=== PATIENT | female | born 1960 | race Caucasian/White ===

== ENCOUNTER 2019-11-10 13:32 | Inpatient (IN) | payer MEDICAID ==
[~2019-11-10] VITALS: Ht 172.7 cm; Wt 80.0 kg
[2019-11-10 14:25] LABS: BASOPHILS % (AUTO) 0.1 % (0-1); EOSINOPHILS % (AUTO) 0.1 % (0-6); HEMATOCRIT 49.1 % (35.0-45.0); HEMOGLOBIN 16.7 g/dl (12.0-16.0); LYMPHOCYTES # (AUTO) 0.7 X10'3 (1.1-4.8); LYMPHOCYTES % (AUTO) 7.6 % (21-51); MEAN CORPUSCULAR HEMOGLOBIN 30.5 PG (27.0-31.0); MEAN CORPUSCULAR VOLUME 89.7 FL (78-98); MEAN PLATELET VOLUME 8.5 FL (7.4-10.4); MONOCYTES # (AUTO) 1.3 X10'3 (0-0.9); MONOCYTES % (AUTO) 13.3 % (2-12); NEUTROPHILS # (AUTO) 7.5 X10'3 (1.8-7.7); NEUTROPHILS % (AUTO) 78.9 % (42-75); PLATELET COUNT 371 X10'3 (140-440); RED BLOOD COUNT 5.47 X10'6 (4.20-5.60); RED CELL DISTRIBUTION WIDTH 14.6 % (11.5-14.5); WHITE BLOOD COUNT 9.4 X10'3 (4.5-11.0)
[2019-11-10] MEDS ORDERED: normal saline 1000ML IV soln IVB ONE ×3 (14:35→17:35)
[2019-11-10] MEDS ORDERED: ondansetron/PF 4mg/2ml inj IV ONE (14:35)
[2019-11-10 14:44] LABS: ALANINE AMINOTRANSFERASE 48 U/L (12-78); ALBUMIN/GLOBULIN RATIO 0.9 (1.1-1.5); ALKALINE PHOSPHATASE 69 IU/L (46-116); ANION GAP 13 (8-16); ASPARTATE AMINO TRANSFERASE 45 U/L (10-37); BILIRUBIN,TOTAL 1.3 MG/DL (0.1-1.0); BLOOD UREA NITROGEN 38 MG/DL (7-18); BUN/CREATININE RATIO 32.2 (6.6-38.0); CALCIUM 9.5 MG/DL (8.5-10.1); CHLORIDE 107 MMOL/L (99-107); CREATININE 1.18 MG/DL (0.40-0.90); GLUCOSE 136 MG/DL (70-104); LIPASE < 50 U/L (73-393); POTASSIUM 3.7 MMOL/L (3.5-5.1); SODIUM 142 MMOL/L (135-145); TOTAL CARBON DIOXIDE 22.3 MMOL/L (24-32); TOTAL PROTEIN 6.5 G/DL (6.4-8.2); eGFR 47 ML/MIN
[2019-11-10] MEDS: morphine 4 MG/ML inj SYRINge IV PRN ×2 (14:48→19:36)
--- NOTE | 2019-11-10 15:06 | NUR ---
Pt has 100ml green bile from NG tube that was placed at previous facility, positive ausculation air sounds for valid NG placement
--- NOTE | 2019-11-10 15:08 | NUR ---
pt ambulatory with steady giat to provide urine sample per orders
[2019-11-10] MEDS ORDERED: diatrozoate meglu/diatrozoate sod (37% iodine) 120ML oral solution ONE (15:40)
[2019-11-10 15:49] LABS: CLARITY,URINE CLEAR (Clear); COLOR,URINE AMBER (Yellow); GLUCOSE, URINE NEGATIVE (Neg); KETONES,URINE TRACE mg/dl (Neg); LEUKOCYTE ESTERASE ,URINE NEGATIVE (Neg); NITRITES, URINE NEGATIVE (Neg); OCCULT BLOOD,URINE NEGATIVE (Neg); PH,URINE 5.5 (4.8-8.0); PROTEIN,URINE TRACE mg/dl (Neg); UA COLLECTION TYPE CLN CATCH MIDSTREAM
[2019-11-10 15:59] LABS: SQUAMOUS EPITHELIAL CELL,UR MODERATE /LPF (FEW)
[2019-11-10 16:00] LABS: BACTERIA,URINE 1+ /HPF (Neg); CAL OXALATE CRYSTALS FEW /HPF (NEGATIVE); RBC,URINE 0-2 /HPF (0-2); WBC,URINE 0-4 /HPF (0-4)
[2019-11-10] MEDS ORDERED: CHOL200052 PO (16:39)
[2019-11-10] MEDS ORDERED: PROP20TA6 PO (16:39)
[2019-11-10] MEDS ORDERED: FLO0.4C PO (16:39)
[2019-11-10] MEDS ORDERED: OMEP40CA13 PO (16:39)
[2019-11-10] MEDS ORDERED: LOSA1TAB36 PO (16:39)
[2019-11-10] MEDS ORDERED: AMIT25TA10 PO (16:39)
[2019-11-10] MEDS ORDERED: SUMA100T16 PO (16:39)
[2019-11-10] MEDS ORDERED: DULO30CA52 PO (16:39)
--- NOTE | 2019-11-10 16:55 | NUR ---
PT TO CT VIA WHEELCHAIR WITH INDIRECT FIRE INFANTRYMAN PER ORDERS NOW
[2019-11-10] MEDS ORDERED: morphine 2 MG/ML inj. syringe IV PRN ×2 (17:25)
[2019-11-10] MEDS ORDERED: magnesium 2GM in 50ml NS 50 ML IV PRN (17:25)
[2019-11-10] MEDS ORDERED: magnesium 4gm in 100ml NS 100 ML IV PRN (17:25)
[2019-11-10] MEDS ORDERED: acetaminophen 325mg tablet PO PRN ×2 (17:25)
[2019-11-10] MEDS ORDERED: potassium CL 10mEq/100ml bag 100 ML IV PRN ×2 (17:25)
[2019-11-10] MEDS ORDERED: ondansetron/PF 4mg/2ml inj IV PRN (17:25)
[2019-11-10] MEDS ORDERED: magnesium hydroxide 30ml (MOM) UD suspension PO PRN (17:25)
[2019-11-10] MEDS ORDERED: diphenhydrAMINE 50 mg/ml inj IV PRN (17:25)
[2019-11-10] MEDS ORDERED: HYDROmorphone 1 mg/ml syringe IV PRN (17:25)
[2019-11-10] MEDS ORDERED: mag hydrox/Alum hydrox/simeth 30ml oral suspension PO PRN (17:25)
[2019-11-10] MEDS ORDERED: metoclopramide 5 mg/ml inj IV PRN (17:25)
[2019-11-10] MEDS ORDERED: potassium Cl 20 mEq SR tablet PO PRN (17:25)
[2019-11-10] MEDS ORDERED: HYDROmorphone inj. 0.5 MG/0.5 ML DISP.SYRIN IV PRN (17:25)
[2019-11-10] MEDS ORDERED: diphenhydrAMINE 25mg capsule PO PRN (17:25)
[2019-11-10] MEDS ORDERED: magnesium Cl slow-release 64mg tablet PO PRN (17:25)
[2019-11-10] MEDS ORDERED: piperacillin/tazo 3.375gm/50ml 50 ML IV SCH (17:25)
[2019-11-10 18:09] LABS: HEMOGLOBIN A1C 5.9 % (4.5-6.2)
--- NOTE | 2019-11-10 19:17 | NUR ---
pt had BM into BSC - approx 4 ping pong sized balls of stool mixed with approx 100ml of dark brown liquid - pt cleaned up and placed back in bed only to request to be placed back on the BSC.
--- NOTE | 2019-11-10 19:31 | NUR ---
PT HAD ANOTHER BM - APPROX 2-3 INCH SEGMENT OF FORMED STOOL WITH APPROX 2500ML OF BROWN LIQUID IN BSC BUCKET. PT CLEANED AND PLACED BACK INTO BED. SHE IS REQUSTING SOMETHING FOR PAIN. WITH CHECK MAR AND MEDICATE PT OR CONTACT MD IF NO ORDERS.
[2019-11-10] MEDS: vancomycin/NS 1 GM ADD-VANTAGE 250 ML IV ONE ×2 (19:33→22:08)
[2019-11-10] MEDS: normal saline 1000ml 1,000 ML IV SCH ×2 (19:37→22:51)
--- NOTE | 2019-11-10 19:46 | NUR ---
pts left arm noted to be swollen, she states she had a ct scan and her iv infiltrated.
--- NOTE | 2019-11-10 20:23 | NUR ---
Received report from ER nurse Ximena LYNN, Will assume patient care.
[2019-11-10 20:30] VITALS: BP 97/51
--- NOTE | 2019-11-10 21:30 | NUR ---
Patient arrived to floor. Patient HR noted to be in the 120's, temp of 102.2. with her 4th Liter of normal saline bolus running. Dr. Montalvo notified of her fever. Also inform him that blood cultural unable to be obtain because of hard stick. is aware and states continue with ABx. 2230-ACCE RN was able to draw blood. Continue infusing her ABX.
[2019-11-10] MEDS: K and/or MAG REPLACEMENT MC SCH (21:44)
[2019-11-11] VITALS (9 sets, daily range): BP systolic 80–103; BP diastolic 52–58
[2019-11-11] MEDS: propranolol 40mg tablet PO SCH ×3 (00:11→20:00)
[2019-11-11] MEDS: duloxetine 30mg CAPSULE.DR PO SCH ×3 (00:17→19:58)
[2019-11-11] MEDS: amitriptyline 50mg tablet PO SCH ×2 (00:17→20:15)
[2019-11-11] MEDS: heparin, porcine 5000 units/ml vial SQ SCH ×3 (00:18→19:58)
--- NOTE | 2019-11-11 01:00 | NUR ---
Patient BP drop to 80/52 with HR in the 120's. Dr. Montalvo notified to give 1L bolus now and reassess BP, If less than 90 systolic to notified him for further orders. @0130 Dr. Montalvo in to see patient. Orders to dc NG. Continue with finishing her bolus BP 87/54 @0200 1L bolus completed. BP 93/57, hr107, temp 98.7. Patient states she is feeling alot better. States her stomach is not as distended and painful.
[2019-11-11] MEDS ORDERED: normal saline 1000ml 1,000 ML IV ONE (01:20)
[2019-11-11] MEDS: normal saline 1000ml 1,000 ML IV SCH ×3 (01:21→17:45)
--- NOTE | 2019-11-11 04:00 | NUR ---
Patient current Bp 103/58, HR 115, temp 98.
[2019-11-11 05:01] LABS: BASOPHILS % (AUTO) 0 % (0-1); EOSINOPHILS % (AUTO) 0.1 % (0-6); HEMATOCRIT 37.7 % (35.0-45.0); HEMOGLOBIN 12.9 g/dl (12.0-16.0); LYMPHOCYTES # (AUTO) 0.6 X10'3 (1.1-4.8); LYMPHOCYTES % (AUTO) 7.2 % (21-51); MEAN CORPUSCULAR HEMOGLOBIN 30.6 PG (27.0-31.0); MEAN CORPUSCULAR HGB CONC 34.2 g/dL (33.0-36.5); MEAN CORPUSCULAR VOLUME 89.7 FL (78-98); MEAN PLATELET VOLUME 8.6 FL (7.4-10.4); MONOCYTES # (AUTO) 1.1 X10'3 (0-0.9); MONOCYTES % (AUTO) 14.1 % (2-12); NEUTROPHILS % (AUTO) 78.6 % (42-75); PLATELET COUNT 285 X10'3 (140-440); RED BLOOD COUNT 4.21 X10'6 (4.20-5.60); RED CELL DISTRIBUTION WIDTH 14.6 % (11.5-14.5); WHITE BLOOD COUNT 7.6 X10'3 (4.5-11.0)
[2019-11-11 05:24] LABS: ALANINE AMINOTRANSFERASE 36 U/L (12-78); ALBUMIN 2.3 G/DL (3.4-5.0); ALBUMIN/GLOBULIN RATIO 0.8 (1.1-1.5); ALKALINE PHOSPHATASE 48 IU/L (46-116); ANION GAP 11 (8-16); ASPARTATE AMINO TRANSFERASE 30 U/L (10-37); BILIRUBIN,TOTAL 0.9 MG/DL (0.1-1.0); BLOOD UREA NITROGEN 33 MG/DL (7-18); BUN/CREATININE RATIO 38.8 (6.6-38.0); CALCIUM 7.8 MG/DL (8.5-10.1); CHLORIDE 112 MMOL/L (99-107); CHOL/HDL RATIO 4.1 (0.00-4.99); CHOLESTEROL 131 MG/DL (0-200); CREATININE 0.85 MG/DL (0.40-0.90); GLUCOSE 104 MG/DL (70-104); HDL CHOLESTEROL 32 MG/DL (35-60); LDL CHOLESTEROL 79 MG/DL (50-100); PHOSPHORUS 2.4 MG/DL (2.3-4.5); POTASSIUM 3.3 MMOL/L (3.5-5.1); SODIUM 145 MMOL/L (135-145); TOTAL CARBON DIOXIDE 22.5 MMOL/L (24-32); TOTAL PROTEIN 5.2 G/DL (6.4-8.2); TRIGLYCERIDES 134 MG/DL (20-135); eGFR 69 ML/MIN
[2019-11-11 06:09] LABS: PLATELET ESTIMATE NORMAL; TOTAL CELLS COUNTED 100
--- NOTE | 2019-11-11 06:30 | NUR ---
Problems reprioritized. Patient report given, questions answered & plan of care reviewed with Melva LYNN.
--- NOTE | 2019-11-11 06:51 | NUR ---
Patient in room [facility]. I have received report from Amina LYNN and had the opportunity to ask questions and assume patient care.
[2019-11-11] MEDS: pantoprazole 40mg Tablet.DR PO SCH (07:36)
[2019-11-11] MEDS: potassium Cl 20 mEq SR tablet PO PRN ×3 (07:37→17:00)
[2019-11-11] MEDS: tamsulosin 0.4mg capsule PO SCH (07:37)
[2019-11-11] MEDS: HYDROcodone/acetaminophen 5mg/325mg tablet PO PRN (07:38)
[2019-11-11] MEDS: K and/or MAG REPLACEMENT MC SCH ×2 (07:43→20:00)
[2019-11-11] MEDS: piperacillin/tazo 3.375gm/50ml 50 ML IV SCH ×2 (07:47→15:15)
[2019-11-11] MEDS ORDERED: losartan 50mg tablet PO SCH (08:00)
[2019-11-11] MEDS ORDERED: HYDROchlorothiazide 12.5mg capsule PO SCH (08:00)
[2019-11-11] MEDS: HYDROcodone/acetaminophen 10/325mg tab PO PRN ×3 (12:43→21:53)
--- NOTE | 2019-11-11 18:39 | NUR ---
Problems reprioritized. Patient report given, questions answered & plan of care reviewed with Zeke LYNN.
--- NOTE | 2019-11-11 18:40 | NUR ---
Patient in room [facility]. I have received report from SIMON LYNN and had the opportunity to ask questions and assume patient care.
[2019-11-12] VITALS: BP 94/50
[2019-11-12] MEDS: piperacillin/tazo 3.375gm/50ml 50 ML IV SCH ×3 (00:29→15:36)
[2019-11-12] MEDS: HYDROcodone/acetaminophen 10/325mg tab PO PRN ×4 (02:03→20:10)
[2019-11-12] MEDS: normal saline 1000ml 1,000 ML IV SCH ×2 (03:07→10:20)
[2019-11-12 05:12] LABS: BASOPHILS % (AUTO) 0.1 % (0-1); EOSINOPHILS # (AUTO) 0.1 X10'3 (0-0.9); EOSINOPHILS % (AUTO) 1.6 % (0-6); HEMATOCRIT 34.3 % (35.0-45.0); HEMOGLOBIN 11.7 g/dl (12.0-16.0); LYMPHOCYTES # (AUTO) 1.1 X10'3 (1.1-4.8); LYMPHOCYTES % (AUTO) 12.7 % (21-51); MEAN CORPUSCULAR HEMOGLOBIN 30.9 PG (27.0-31.0); MEAN CORPUSCULAR HGB CONC 34.2 g/dL (33.0-36.5); MEAN CORPUSCULAR VOLUME 90.4 FL (78-98); MONOCYTES # (AUTO) 0.9 X10'3 (0-0.9); MONOCYTES % (AUTO) 10.4 % (2-12); NEUTROPHILS # (AUTO) 6.3 X10'3 (1.8-7.7); NEUTROPHILS % (AUTO) 75.2 % (42-75); PLATELET COUNT 264 X10'3 (140-440); RED BLOOD COUNT 3.79 X10'6 (4.20-5.60); RED CELL DISTRIBUTION WIDTH 14.9 % (11.5-14.5); WHITE BLOOD COUNT 8.4 X10'3 (4.5-11.0)
[2019-11-12 05:36] LABS: ALANINE AMINOTRANSFERASE 29 U/L (12-78); ALBUMIN/GLOBULIN RATIO 0.6 (1.1-1.5); ALKALINE PHOSPHATASE 46 IU/L (46-116); ANION GAP 8 (8-16); ASPARTATE AMINO TRANSFERASE 25 U/L (10-37); BILIRUBIN,TOTAL 0.4 MG/DL (0.1-1.0); BLOOD UREA NITROGEN 14 MG/DL (7-18); BUN/CREATININE RATIO 24.1 (6.6-38.0); CALCIUM 7.5 MG/DL (8.5-10.1); CHLORIDE 110 MMOL/L (99-107); CREATININE 0.58 MG/DL (0.40-0.90); GLUCOSE 99 MG/DL (70-104); MAGNESIUM 1.9 MG/DL (1.5-2.4); POTASSIUM 3.5 MMOL/L (3.5-5.1); SODIUM 140 MMOL/L (135-145); TOTAL CARBON DIOXIDE 22.4 MMOL/L (24-32); TOTAL PROTEIN 5.1 G/DL (6.4-8.2); eGFR > 90 ML/MIN
[2019-11-12 05:39] LABS: PHOSPHORUS 0.8 MG/DL (2.3-4.5)
--- NOTE | 2019-11-12 06:04 | NUR ---
CALLED DR. ALBARRAN AND WAS INFORMED OF CRITICAL PHOS 0.8 NO NEW ORDERS MADE.
--- NOTE | 2019-11-12 06:15 | NUR ---
Patient in room [facility]. I have received report from LEAH Alanis and had the opportunity to ask questions and assume patient care.
[2019-11-12 07:27] VITALS: BP 100/61
[2019-11-12] MEDS: K and/or MAG REPLACEMENT MC SCH ×2 (08:00→19:45)
[2019-11-12 08:18] LABS: ANISOCYTOSIS 1+; PLATELET ESTIMATE NORMAL; TOTAL CELLS COUNTED 100
[2019-11-12] MEDS: pantoprazole 40mg Tablet.DR PO SCH (08:40)
[2019-11-12] MEDS: propranolol 40mg tablet PO SCH ×2 (08:40→20:09)
[2019-11-12] MEDS: heparin, porcine 5000 units/ml vial SQ SCH ×2 (08:41→20:13)
[2019-11-12] MEDS: tamsulosin 0.4mg capsule PO SCH (08:41)
[2019-11-12] MEDS: duloxetine 30mg CAPSULE.DR PO SCH ×2 (08:41→20:11)
[2019-11-12] MEDS ORDERED: pneumococcal 23-VAL P-sac vacc 25 mcg/0.5ml vial IMVAC ONE (10:00)
[2019-11-12 11:00] VITALS: BP 98/57
[2019-11-12] MEDS ORDERED: furosemide 40mg/4ml inj IV ONE (14:15)
[2019-11-12] MEDS ORDERED: methylPREDNISolone sod succ 125mg/2ml vial IV ONE (14:15)
[2019-11-12] MEDS: ipratropium/albuterol 3ml nebule NEB SCH ×3 (15:00→23:21)
[2019-11-12 18:00] VITALS: BP 105/66
--- NOTE | 2019-11-12 18:00 | NUR ---
Problems reprioritized. Patient report given, questions answered & plan of care reviewed with LEAH Stevens.
[2019-11-12] MEDS: lactobacillus rhamnosus 10,000 MMU CELLS/CAPSULE PO SCH (20:10)
[2019-11-12] MEDS: methylPREDNISolone sod succ 125mg/2ml vial IV SCH (20:14)
[2019-11-12] MEDS: amitriptyline 50mg tablet PO SCH (21:00)
[2019-11-12] MEDS ORDERED: potassium phosphate inj 30 MMOL in normal saline 500ml IV soln 490 ML IV ONE (22:10)
[2019-11-13] VITALS: BP 96/62
[2019-11-13] MEDS: methylPREDNISolone sod succ 125mg/2ml vial IV SCH ×3 (01:04→14:15)
[2019-11-13] MEDS: piperacillin/tazo 3.375gm/50ml 50 ML IV SCH ×2 (01:04→11:30)
[2019-11-13] MEDS: ipratropium/albuterol 3ml nebule NEB SCH ×4 (03:17→15:12)
[2019-11-13] MEDS: HYDROcodone/acetaminophen 5mg/325mg tablet PO PRN ×3 (03:51→14:04)
[2019-11-13 05:28] LABS: EOSINOPHILS % (AUTO) 0 % (0-6); HEMOGLOBIN 11.7 g/dl (12.0-16.0); LYMPHOCYTES # (AUTO) 0.4 X10'3 (1.1-4.8); MEAN PLATELET VOLUME 9.6 FL (7.4-10.4); MONOCYTES # (AUTO) 0.1 X10'3 (0-0.9)
[2019-11-13 05:32] LABS: BASOPHILS % (AUTO) 0.2 % (0-1); HEMATOCRIT 33.6 % (35.0-45.0); LYMPHOCYTES % (AUTO) 5.6 % (21-51); MEAN CORPUSCULAR HGB CONC 34.7 g/dL (33.0-36.5); MEAN CORPUSCULAR VOLUME 89.2 FL (78-98); MONOCYTES % (AUTO) 1.5 % (2-12); NEUTROPHILS # (AUTO) 6.5 X10'3 (1.8-7.7); NEUTROPHILS % (AUTO) 92.7 % (42-75); PLATELET COUNT 305 X10'3 (140-440); RED BLOOD COUNT 3.77 X10'6 (4.20-5.60); RED CELL DISTRIBUTION WIDTH 14.5 % (11.5-14.5)
[2019-11-13 05:43] LABS: ALANINE AMINOTRANSFERASE 30 U/L (12-78); ALBUMIN 2.2 G/DL (3.4-5.0); ALBUMIN/GLOBULIN RATIO 0.6 (1.1-1.5); ALKALINE PHOSPHATASE 56 IU/L (46-116); ANION GAP 6 (8-16); ASPARTATE AMINO TRANSFERASE 20 U/L (10-37); BILIRUBIN,TOTAL 0.3 MG/DL (0.1-1.0); BLOOD UREA NITROGEN 13 MG/DL (7-18); BUN/CREATININE RATIO 24.5 (6.6-38.0); CALCIUM 8.2 MG/DL (8.5-10.1); CHLORIDE 107 MMOL/L (99-107); CREATININE 0.53 MG/DL (0.40-0.90); GLUCOSE 136 MG/DL (70-104); MAGNESIUM 1.8 MG/DL (1.5-2.4); PHOSPHORUS 2.2 MG/DL (2.3-4.5); POTASSIUM 3.9 MMOL/L (3.5-5.1); SODIUM 141 MMOL/L (135-145); TOTAL CARBON DIOXIDE 27.7 MMOL/L (24-32); TOTAL PROTEIN 5.7 G/DL (6.4-8.2); eGFR > 90 ML/MIN
--- NOTE | 2019-11-13 06:46 | NUR ---
Patient in room [facility]. I have received report from LEAH DAVILA and had the opportunity to ask questions and assume patient care.
[2019-11-13 07:00] VITALS: BP 112/67
[2019-11-13] MEDS: K and/or MAG REPLACEMENT MC SCH (08:00)
[2019-11-13] MEDS: pantoprazole 40mg Tablet.DR PO SCH (08:52)
[2019-11-13] MEDS: lactobacillus rhamnosus 10,000 MMU CELLS/CAPSULE PO SCH (08:52)
[2019-11-13] MEDS: duloxetine 30mg CAPSULE.DR PO SCH (08:52)
[2019-11-13] MEDS: tamsulosin 0.4mg capsule PO SCH (08:53)
[2019-11-13] MEDS: propranolol 40mg tablet PO SCH (08:53)
[2019-11-13] MEDS: heparin, porcine 5000 units/ml vial SQ SCH (08:53)
[2019-11-13 11:00] VITALS: BP 121/76
[2019-11-13] MEDS ORDERED: BUDE10.22 INH (16:58)
[2019-11-13] MEDS ORDERED: LACT1CAP26 PO (16:58)
[2019-11-13] MEDS ORDERED: ALBU8.5H8 INH (16:58)
[2019-11-13] MEDS ORDERED: METR500T PO (16:58)
[2019-11-13] MEDS ORDERED: LEVO750T46 PO (16:58)
[2019-11-13] MEDS ORDERED: PRED10TA23 PO (16:58)
[2019-11-13] MEDS ORDERED: NEUPHOSK PO (17:50)
[2019-11-13] MEDS ORDERED: DOCU-148 PO (17:50)
--- NOTE | 2019-11-13 18:00 | NUR ---
PATIENT STABLE AND APPROPRIATE FOR DISCHARGE, EDUCATION GIVEN, IV TAKEN OUT, MEDS E-SCRIPTED TO PREFERRED PHARMACY, ALL BELONGINGS SENT WITH PATIENT, PATIENT TAKEN TO LOBBY IN WHEELCHAIR TO AN AWAITING CAR WHERE DAUGHTER WILL TAKE PATIENT HOME
== END 2019-11-13 18:00 | disposition home or self-care (01) | DRG 249 ==
LOC: ER 13:33 → ED HOLD 17:21 → SUR 3N 21:00
PROVIDERS: ADMIT Family Medicine; ATTEND Family Medicine
DX: A09 Infectious gastroenteritis and colitis, unspecified (principal); N17.9 Acute kidney failure, unspecified; E87.2 Acidosis; D72.825 Bandemia; E86.0 Dehydration; F17.200 Nicotine dependence, unspecified, uncomplicated; F32.9 Major depressive disorder, single episode, unspecified; I10 Essential (primary) hypertension; J44.9 Chronic obstructive pulmonary disease, unspecified; K59.00 Constipation, unspecified; K21.9 Gastro-esophageal reflux disease without esophagitis; G43.909 Migraine, unspecified, not intractable, without status migrainosus; Z88.2 Allergy status to sulfonamides; Z80.1 Family history of malignant neoplasm of trachea, bronchus and lung; Z82.5 Family history of asthma and other chronic lower respiratory diseases; Z87.442 Personal history of urinary calculi; Z90.710 Acquired absence of both cervix and uterus; Z23 Encounter for immunization
CPT/HCPCS: 36415; 71045; 74176; 80053; 80061; 81001; 83036; 83605; 83690; 83735; 84100; 85025; 87040; 87081; 90732; 94640; 94760; 96361; 96374; 99285; G0378; J1170; J1644; J1940; J2270; J2405; J2543; J2930; J3370; J7030; J7040; Q9963

== ENCOUNTER 2020-07-28 13:00 | Day surgery (SDC) | payer MEDICAID ==
[~2020-07-28] VITALS: Ht 172.7 cm; Wt 84.0 kg
[2020-07-28] VITALS (7 sets, daily range): BP systolic 120–138; BP diastolic 71–86
[~2020-07-28 13:00] MED LIST: ALBU8.5H8 INH; CYCL5TAB PO; LORA10CA PO; LOSA1TAB36 PO; OMEP40CA13 PO; OXYC1TAB17 PO; PROP20TA6 PO; SUMA100T16 PO; VARE1TAB21 PO; ZOF4I PO; cefazolin/dext.iso 2gm/50ml 50 ML IV ONE; famotidine 20mg tablet PO ONE; ringers solution, lacted 1,000 ML IV SCH
[2020-07-28] MEDS ORDERED: ringers solution, lacted 1,000 ML IV ONE (13:26)
[2020-07-28 14:30] LABS: BASOPHILS # (AUTO) 0.1 X10'3 (0-0.2); BASOPHILS % (AUTO) 1.2 % (0-1); EOSINOPHILS # (AUTO) 0.2 X10'3 (0-0.9); EOSINOPHILS % (AUTO) 2.5 % (0-6); LYMPHOCYTES # (AUTO) 1.7 X10'3 (1.1-4.8); LYMPHOCYTES % (AUTO) 18.7 % (21-51); MEAN CORPUSCULAR HEMOGLOBIN 30.3 PG (27.0-31.0); MEAN CORPUSCULAR HGB CONC 33.4 g/dL (33.0-36.5); MEAN CORPUSCULAR VOLUME 90.6 FL (78-98); MEAN PLATELET VOLUME 8.7 FL (7.4-10.4); MONOCYTES # (AUTO) 0.7 X10'3 (0-0.9); MONOCYTES % (AUTO) 8.4 % (2-12); NEUTROPHILS # (AUTO) 6.1 X10'3 (1.8-7.7); NEUTROPHILS % (AUTO) 69.2 % (42-75); PRE OP HEMATOCRIT 45.6 % (35.0-45.0); PRE OP HEMOGLOBIN 15.3 g/dL (12.0-16.0); PRE OP PLATELET COUNT 433 X10'3 (140-440); RED BLOOD COUNT 5.04 X10'6 (4.20-5.60); RED CELL DISTRIBUTION WIDTH 13.5 % (11.5-14.5)
[2020-07-28 14:44] LABS: ALBUMIN 3.7 G/DL (3.4-5.0); ALBUMIN/GLOBULIN RATIO 0.9 (1.1-1.5); ALKALINE PHOSPHATASE 73 IU/L (46-116); BLOOD UREA NITROGEN 23 MG/DL (7-18); BUN/CREATININE RATIO 31.9 (6.6-38.0); CALCIUM 9.5 MG/DL (8.5-10.1); CHLORIDE 99 MMOL/L (99-107); CREATININE 0.72 MG/DL (0.40-0.90); PRE OP ALT 27 U/L (30-65); PRE OP ANION GAP 7 (8-16); PRE OP AST 15 U/L (10-37); PRE OP BILIRUB, TOTAL 0.3 MG/DL (0.0-1.0); PRE OP GLUCOSE 100 MG/DL (70-104); PRE OP POTASSIUM 3.5 MMOL/L (3.4-5.1); PRE OP SODIUM 136 MMOL/L (135-145); TOTAL CARBON DIOXIDE 30.3 MMOL/L (24-32); eGFR 83 ML/MIN
[2020-07-28] MEDS ORDERED: ondansetron/PF 4mg/2ml inj ONE (16:47)
[2020-07-28] MEDS ORDERED: sevoflurane 250ml liquid IH ONE (16:47)
[2020-07-28] MEDS ORDERED: dexamethasone sod phosphate 10mg/ml inj ONE (16:47)
[2020-07-28] MEDS ORDERED: MIDAZolam 5mg/5ml vial ONE (16:51)
[2020-07-28] MEDS ORDERED: fentaNYL/PF 50MCG/1 ML 2ML syringe ONE (16:51)
[2020-07-28] MEDS ORDERED: ROPIVAcaine 0.5% (5mg/ml) 30ml vial ONE (17:34)
[2020-07-28] MEDS ORDERED: BUPIVAcaine/PF 7.5mg/ml (0.75%) 10ml vial ONE (17:34)
[2020-07-28] MEDS ORDERED: propofol inj 20 ML IV ONE (17:36)
[2020-07-28] MEDS ORDERED: LIDOcaine 1%/PF 5ML 10 MG/ML VIAL ONE (17:37)
[2020-07-28] MEDS ORDERED: bacitracin 15gm ointment TP ONE (17:38)
[2020-07-28] MEDS ORDERED: ringers solution, lacted 1,000 ML IV SCH (17:51)
[2020-07-28] MEDS ORDERED: ROPIVAcaine 0.2%/PF PUMP/bolus 550 ML POPLITEAL SCH (17:51)
[2020-07-28] MEDS ORDERED: proCHLORperazine 10 MG/2 ml inj IV PRN (17:55)
[2020-07-28] MEDS ORDERED: morphine 2 MG/ML inj. syringe IV PRN (17:55)
[2020-07-28] MEDS ORDERED: ondansetron/PF 4mg/2ml inj IV PRN (17:55)
[2020-07-28] MEDS ORDERED: meperidine/PF 25mg/ml syringe IV PRN ×3 (17:55)
[2020-07-28] MEDS ORDERED: morphine 4 MG/ML inj SYRINge IV PRN (17:55)
[2020-07-28] MEDS ORDERED: ROPIVAcaine 0.2% (10 MG/5 ML) BOLUS INJECTION POPLITEAL PRN (17:55)
--- NOTE | 2020-07-28 18:46 | NUR ---
Received from OR via [facility], accompanied by Anesthesiologist Trip and report given by Anesthesiolgist. VS WNL mask to 10L sats 100%. 20G IV LR at 100cc/hr. Left ankle elevated and toes exposed pt cannot feel sensation no pain and toes good cap refill, splint cast CDI.
--- NOTE | 2020-07-28 20:06 | NUR ---
Pt discharged to vehicle by wheelchair without incident. Pt had IV DC'd and all belongings returned to her. She verbalized understanding of discharge instructions including extensive education on use of ON-Q pain meds, as did son at vehicle upon further description and demonstration. Pt has other pain meds at home from MD for breakthrough pain. She knows to follow up and already has an appointment. She has received extensive education on the importance of deep breathing and coughing and respiratory care as a smoker.
== END 2020-07-28 20:06 | disposition home or self-care (01) ==
LOC: PAS 13:00
PROVIDERS: ATTEND Podiatrist Foot & Ankle Surgery
DX: S82.852A Displaced trimalleolar fracture of left lower leg, initial encounter for closed fracture (principal); G89.18 Other acute postprocedural pain; Z79.899 Other long term (current) drug therapy; Z90.710 Acquired absence of both cervix and uterus; Z98.890 Other specified postprocedural states; Z87.442 Personal history of urinary calculi; F17.210 Nicotine dependence, cigarettes, uncomplicated; I10 Essential (primary) hypertension; K21.9 Gastro-esophageal reflux disease without esophagitis; E66.9 Obesity, unspecified; Z72.89 Other problems related to lifestyle; X58.XXXA Exposure to other specified factors, initial encounter; Y93.89 Activity, other specified; Y92.89 Other specified places as the place of occurrence of the external cause; Y99.8 Other external cause status; M25.572 Pain in left ankle and joints of left foot
CPT/HCPCS: 27822; 36415; 64446; 64448; 73610; 76000; 80053; 82948; 85025; 93005; A6223; C1713; J1100; J2250; J2405; J2704; J2795; J3010; J3490; 76942; A4215; A4618; A6253; A6449; A7000; J7120

== ENCOUNTER 2023-09-17 07:37 | Day surgery (SDC) | payer MEDICAID ==
[2023-09-10 16:52] LABS: BILIRUBIN,URINE NEGATIVE (Neg); CLARITY,URINE SLIGHTLY CLOUDY (Clear); COLOR,URINE YELLOW (Yellow); GLUCOSE, URINE NEGATIVE (Neg); KETONES,URINE NEGATIVE (Neg); LEUKOCYTE ESTERASE ,URINE NEGATIVE (Neg); NITRITES, URINE NEGATIVE (Neg); OCCULT BLOOD,URINE NEGATIVE (Neg); PH,URINE 6.5 (4.8-8.0); PROTEIN,URINE NEGATIVE (Neg); UROBILINOGEN,URINE 0.2 E.U/dL (0.2-1.0)
[2023-09-10 16:53] LABS: BASOPHILS # (AUTO) 0.1 X10'3 (0-0.2); BASOPHILS % (AUTO) 0.9 % (0-1); EOSINOPHILS # (AUTO) 0.3 X10'3 (0-0.9); LYMPHOCYTES # (AUTO) 2.2 X10'3 (1.1-4.8); MEAN PLATELET VOLUME 8.5 FL (7.4-10.4); MONOCYTES # (AUTO) 0.6 X10'3 (0-0.9); NEUTROPHILS # (AUTO) 5.3 X10'3 (1.8-7.7); NEUTROPHILS % (AUTO) 62.3 % (42-75); PRE OP WHITE BLOOD COUNT 8.5 10'3 (4.8-10.8)
[2023-09-10 16:55] LABS: EOSINOPHILS % (AUTO) 3.8 % (0-6); MEAN CORPUSCULAR HEMOGLOBIN 28.9 PG (27.0-31.0); MEAN CORPUSCULAR HGB CONC 32.3 g/dL (33.0-36.5); MEAN CORPUSCULAR VOLUME 89.7 FL (78-98); PRE OP HEMATOCRIT 44.3 % (35.0-45.0); PRE OP HEMOGLOBIN 14.3 g/dL (12.0-16.0); PRE OP PLATELET COUNT 424 X10'3 (140-440); RED BLOOD COUNT 4.94 X10'6 (4.20-5.60); RED CELL DISTRIBUTION WIDTH 13.4 % (11.5-14.5)
[2023-09-10 16:58] LABS: UA COLLECTION TYPE CLN CATCH MIDSTREAM
[2023-09-10 17:21] LABS: BACTERIA,URINE NONE SEEN /HPF (Neg); SQUAMOUS EPITHELIAL CELL,UR MODERATE /LPF (FEW); WBC,URINE 0-4 /HPF (0-4)
[2023-09-10 17:27] LABS: ALBUMIN 3.8 G/DL (3.4-5.0); ALKALINE PHOSPHATASE 80 IU/L (46-116); BLOOD UREA NITROGEN 19 MG/DL (7-18); BUN/CREATININE RATIO 27.5 (10.0-20.0); CALCIUM 10.1 MG/DL (8.5-10.1); CHLORIDE 101 MMOL/L (99-107); CREATININE 0.69 MG/DL (0.40-0.90); PRE OP ALT 25 U/L (30-65); PRE OP ANION GAP 10 (8-16); PRE OP AST 14 U/L (10-37); PRE OP BILIRUB, TOTAL 0.2 MG/DL (0.0-1.0); PRE OP GLUCOSE 101 MG/DL (70-104); PRE OP POTASSIUM 3.7 MMOL/L (3.4-5.1); PRE OP SODIUM 140 MMOL/L (135-145); TOTAL CARBON DIOXIDE 28.9 MMOL/L (24-32); TOTAL PROTEIN 7.6 G/DL (6.4-8.2); eGFR 86 ML/MIN
[~2023-09-17] VITALS: Ht 170.2 cm; Wt 81.6 kg
[2023-09-17] VITALS (15 sets, daily range): BP systolic 104–159; BP diastolic 57–102; PULSE 60–86; RESP 14–20; TEMP 97.4; O2SAT 93–100
[~2023-09-17 07:37] MED LIST changes: -ALBU8.5H8 INH; +BUPIVAcaine/PF 2.5mg/ml (0.25%) 10ml vial ONE; +BUSP10TA3 PO; +CALC500T63 PO; +CETI10TA14 PO; +CHOL100017 PO; +CILO100T27 PO; +DOCUMENT DATE & TIME OF BETA-BLOCKER PO ONE; +DULO60CA65 PO; -LORA10CA PO; +LYR25C PO; -OMEP40CA13 PO; +OMEP40CA21 PO; +ONDA4TAB12 PO; -OXYC1TAB17 PO; +PER5325T PO; -VARE1TAB21 PO; -ZOF4I PO; +ceFOXitin 2GM-NS 100mL ADDvant 100 ML IV ONE; -cefazolin/dext.iso 2gm/50ml 50 ML IV ONE
[2023-09-17] MEDS ORDERED: morphine 2 MG/ML inj. syringe IV PRN (08:30)
[2023-09-17] MEDS ORDERED: ondansetron/PF 4mg/2ml inj IV PRN (08:30)
[2023-09-17] MEDS ORDERED: ringers solution, lacted 1,000 ML IV SCH (08:30)
[2023-09-17] MEDS ORDERED: proCHLORperazine 10 MG/2 ml inj IV PRN (08:30)
[2023-09-17] MEDS ORDERED: morphine 4 MG/ML inj SYRINge IV PRN (08:30)
[2023-09-17] MEDS ORDERED: meperidine/PF 25mg/ml syringe IV PRN ×3 (08:30)
[2023-09-17] MEDS ORDERED: dexamethasone sod phosphate 10mg/ml inj ONE (09:32)
[2023-09-17] MEDS ORDERED: neostigmine methylsulfate 1 MG/ML 10ml vial ONE (09:32)
[2023-09-17] MEDS ORDERED: labetalol 20mg/4ml (5mg/ml) syringe IV ONE (09:32)
[2023-09-17] MEDS ORDERED: glycopyrrolate 0.2mg/ml inj ONE (09:32)
[2023-09-17] MEDS ORDERED: ondansetron/PF 4mg/2ml inj ONE (09:32)
[2023-09-17] MEDS ORDERED: sevoflurane 250ml liquid IH ONE (09:32)
[2023-09-17] MEDS ORDERED: fentaNYL/PF 50MCG/1 ML 2ML syringe ONE (09:40)
[2023-09-17] MEDS ORDERED: midazolam 1 mg/ML 2ml injection ONE (09:40)
[2023-09-17] MEDS ORDERED: meperidine/PF 25mg/ml syringe ONE (09:41)
[2023-09-17] MEDS ORDERED: propofol inj 20 ML IV ONE (09:41)
[2023-09-17] MEDS ORDERED: rocuronium 10mg/ml inj IV ONE (09:41)
[2023-09-17] MEDS ORDERED: LIDOcaine 2% (20mg/ml) 5ml vial ONE (09:41)
[2023-09-17] MEDS ORDERED: morphine 4 MG/ML inj SYRINge IV ONE (10:19)
[2023-09-17] MEDS ORDERED: ketorolac trometh. 30mg/ml inj. ONE (10:52)
--- NOTE | 2023-09-17 11:03 | NUR ---
Received from OR via [facility] TO [facility] 7, accompanied by Anesthesiologist DR GUZMAN and report given by Anesthesiolgist. PT PRESENTS WITH PIV 20G LEFT WRIST, SPO2 99% 6L MASK, LR RUNNING AT 100MLS/HR, ABD DRESSING DERMABOND MONIQUE, VSS. Addendum: 09/17/23 at 1108 by Neda Bazzi RN, RN Amended: Links added.
[2023-09-17] MEDS ORDERED: HYDROcodone/acetaminophen 10/325mg tab PO ONE (12:20)
[2023-09-17] MEDS ORDERED: albuterol 60 PUFF/8GM Inhaler (90mcg/1 puff) IH ONE (12:54)
--- NOTE | 2023-09-17 13:03 | NUR ---
I HAVE REVIEWED D/C INSTRUCTIONS WITH PATIENT AND THEY HAVE VERBALIZED UNDERSTANDING. PT TAKEN OUT IN WHEELCHAIR. PATIENT D/C HOME WITH ALL BELONGINGS AND FAMILY GAVE TRANSPORT. Addendum: 09/17/23 at 1311 by Neda Bazzi RN, RN Amended: Links added.
== END 2023-09-17 13:02 | disposition home or self-care (01) ==
LOC: PAS 07:37
PROVIDERS: ATTEND Surgery
DX: K80.12 Calculus of gallbladder with acute and chronic cholecystitis without obstruction (principal); I10 Essential (primary) hypertension; F17.210 Nicotine dependence, cigarettes, uncomplicated; F32.A Depression, unspecified; F41.9 Anxiety disorder, unspecified; G43.909 Migraine, unspecified, not intractable, without status migrainosus; K21.9 Gastro-esophageal reflux disease without esophagitis; Z87.442 Personal history of urinary calculi; Z88.2 Allergy status to sulfonamides; Z90.710 Acquired absence of both cervix and uterus; Z98.890 Other specified postprocedural states; Z72.89 Other problems related to lifestyle; Z79.899 Other long term (current) drug therapy
CPT/HCPCS: 36415; 47562; 80053; 81001; 82948; 85025; 93005; J0694; J1100; J1885; J2175; J2250; J2270; J2405; J2704; J2710; J3010; J3490; J7030; J7120; Z7506; Z7508; Z7512; A4215; A4615; A4618; A6402; A6449; A7000